=== PATIENT | female | born 1995 | race Two or more races ===

== ENCOUNTER 2022-08-07 04:41 | Inpatient (IN) | payer OTHER ==
[~2022-08-07] VITALS: Ht 162.6 cm; Wt 93.2 kg
[2022-08-07] VITALS (36 sets, daily range): BP systolic 112–161; BP diastolic 56–90
[2022-08-07] MEDS ORDERED: TRANEXAMIC ACID INJection 1,000 MG in NS 100 ML IV PRN (09:25)
[2022-08-07] MEDS ORDERED: LIDOCAINE 1% MDV 20ML VIAL INFIL PRN (09:25)
[2022-08-07] MEDS ORDERED: BUTORPHANOL 2 MG/ML INJ (J0595) IV PRN (09:25)
[2022-08-07] MEDS ORDERED: METHYLERGONOVINE MALEATE 0.2 MG/ML VIAL (J2210) IM PRN (09:25)
[2022-08-07] MEDS ORDERED: PENICILLIN G POTASSIUM IV 2.5 MU in IV 1 EA IV SCH (09:25)
[2022-08-07] MEDS ORDERED: PROMETHAZINE 25MG/ML 1ML VIAL IV ONE (09:25)
[2022-08-07] MEDS ORDERED: PENICILLIN G POTASSIUM 5 MU IV 5 MU in D5W MINI-BAG PLUS 100 ML IV ONE (09:25)
[2022-08-07] MEDS ORDERED: OXYTOCIN DRIP 30 UNITS in IV 1 EA IV PRN ×4 (09:25)
[2022-08-07] MEDS ORDERED: OXYTOCIN INJ 10 UNITS/ML VIAL (J2590) IM PRN (09:25)
[2022-08-07 10:00] LABS: HEMATOCRIT 37.7 % (36.0-47.0); HEMOGLOBIN 12.4 g/dl (12.0-15.5); MEAN CORPUSCULAR HEMOGLOBIN 29.2 pg (27.0-33.0); MEAN CORPUSCULAR HGB CONC 32.9 g/dl (32.0-36.5); MEAN CORPUSCULAR VOLUME 88.7 fl (80.0-96.0); PLATELET COUNT, AUTOMATED 173 10^3/uL (150-450); RED BLOOD COUNT 4.25 10^6/uL (4.00-5.40); WHITE BLOOD COUNT 12.9 10^3/uL (4.0-10.0)
[2022-08-07] MEDS ORDERED: PRENTAB9 PO (10:10)
[2022-08-07] MEDS ORDERED: HOME MED LIST COMPLETE! XX SCH (10:15)
[2022-08-07] MEDS ORDERED: FENTANYL 2MCG/ML ROPIVACAINE 0.2% IN 0.9% NACL 100ML IVBAG As Ordered ONE (10:34)
[2022-08-07] MEDS ORDERED: FENTANYL/ROPIVACAINE/NACL BAG 100 ML EPIDURAL SCH (10:35)
[2022-08-07] MEDS ORDERED: EPIDURAL/PCA KEYS XX PRN (10:35)
[2022-08-07] MEDS ORDERED: NALOXONE INJ 0.4MG/1ML VIAL (J2310 PER 1MG) IV PRN (10:35)
[2022-08-07] MEDS ORDERED: LR 500 ML IV PRN (10:35)
[2022-08-07] MEDS ORDERED: diphenhydrAMINE 50MG/ML VIAL IV PRN (10:35)
[2022-08-07] MEDS ORDERED: ONDANSETRON 4MG 2ML VIAL IV PRN (10:35)
[2022-08-07] MEDS ORDERED: ePHEDrine SULFATE 25 MG/5 ML(5MG/ML) SYRINGE IVP PRN (10:35)
[2022-08-07] MEDS: PEN G POT 3,000,000 UNIT/50 ML 3,000,000 UNIT in IV 1 EA IV SCH ×2 (14:00→18:00)
[2022-08-07] MEDS ORDERED: ACETAMINOPHEN TAB 650MG DOSE (2X325MG) PO PRN (16:40)
[2022-08-07] MEDS ORDERED: RHOGAM 300 MCG (1500 IU) INJ (J2790) IM SCH (16:40)
[2022-08-07] MEDS ORDERED: FAMOTIDINE 20 MG TAB PO PRN (16:40)
[2022-08-07] MEDS ORDERED: IBUPROFEN 800 MG TAB PO PRN (16:40)
[2022-08-07] MEDS ORDERED: OXYTOCIN DRIP 30 UNITS in IV 1 EA IV SCH ×4 (16:40)
[2022-08-07] MEDS ORDERED: ANUSOL HC CREAM 30GM TOP PRN (16:40)
[2022-08-07] MEDS ORDERED: DIBUCAINE 1% OINTMENT 30GM TOP PRN (16:40)
[2022-08-07] MEDS ORDERED: DOCUSATE SODIUM 100MG CAPSULE PO PRN (16:40)
[2022-08-07] MEDS ORDERED: CALCIUM CARBONATE 500 MG CHEW U/D PO PRN (16:40)
[2022-08-07] MEDS ORDERED: METHYLERGONOVINE MALEATE 0.2 MG TAB PO PRN (16:40)
[2022-08-07] MEDS: PRENATAL VITAMINS CHEWABLE TABLET PO SCH (17:49)
[2022-08-08] MEDS: IBUPROFEN 600MG TAB PO PRN ×2 (05:45→20:43)
[2022-08-08 05:52] VITALS: BP 117/70
[2022-08-08 06:43] LABS: HEMATOCRIT 35.8 % (36.0-47.0); HEMOGLOBIN 11.7 g/dl (12.0-15.5); MEAN CORPUSCULAR HEMOGLOBIN 29.5 pg (27.0-33.0); MEAN CORPUSCULAR HGB CONC 32.7 g/dl (32.0-36.5); MEAN CORPUSCULAR VOLUME 90.2 fl (80.0-96.0); PLATELET COUNT, AUTOMATED 159 10^3/uL (150-450); RED BLOOD COUNT 3.97 10^6/uL (4.00-5.40); WHITE BLOOD COUNT 10.4 10^3/uL (4.0-10.0)
[2022-08-08] MEDS: PRENATAL VITAMINS CHEWABLE TABLET PO SCH (09:22)
[2022-08-08] MEDS: ACETAMINOPHEN 500 MG TAB PO PRN (09:28)
[2022-08-08 17:59] VITALS: BP 120/64
[2022-08-08 18:00] VITALS: BP 120/64
[2022-08-09 06:18] VITALS: BP 118/70
[2022-08-09] MEDS: PRENATAL VITAMINS CHEWABLE TABLET PO SCH (07:57)
[2022-08-09] MEDS: ACETAMINOPHEN 500 MG TAB PO PRN (08:47)
[2022-08-09] MEDS ORDERED: MEASLES,MUMPS,RUBELLA VACCINE INJ (MMR-II) (90707) SC.IMMUN ONE (09:00)
== END 2022-08-09 12:30 | disposition home or self-care (01) | DRG 807 ==
LOC: M LDO 04:41 → M LDI 09:20 → M OBS 17:25
PROVIDERS: ADMIT Obstetrics & Gynecology; ATTEND Obstetrics & Gynecology
PROC: 10E0XZZ Delivery of Products of Conception, External Approach (ICD-10-PCS; principal; 2022-08-07)
PROC: 10907ZC Drainage of Amniotic Fluid, Therapeutic from Products of Conception, Via Natural or Artificial Opening (ICD-10-PCS; 2022-08-07)
DX: O99.824 Streptococcus B carrier state complicating childbirth (principal); Z37.0 Single live birth; Z3A.38 38 weeks gestation of pregnancy